=== PATIENT | male | born 1970 | race Caucasian/White ===

== ENCOUNTER 2020-03-04 00:35 | Emergency (ER) | payer SELFPAY ==
[~2020-03-04] VITALS: Ht 180.3 cm; Wt 70.3 kg
[2020-03-04] MEDS ORDERED: NS 1000ML 1,000 ML IV STA (01:09)
[2020-03-04] MEDS ORDERED: NS 1000ML 1,000 ML ONE (01:18)
--- NOTE | 2020-03-04 01:19 | ER.PDOC ---
General Chief Complaint: Requesting Medical Care Stated Complaint: ABDOMINAL PAIN AND VOMITING Time seen by MD: 01:15 Source: patient Exam Limitations: no limitations History of Present Illness Initial Comments Upper abdominal pain and vomiting blood since last night. Patient is a chronic alcoholic. Severity/Quality: moderate Radiation: no radiation Associated Symptoms: nausea/vomiting Exacerbated by: nothing Relieved By: nothing Allergies: Coded Allergies: Penicillins (Verified Allergy, Unknown, Rash, 03/04/20) Home Meds No Active Prescriptions or Reported Meds Vital Signs First Vital Signs Date Time Temp Pulse Resp B/P (MAP) Pulse Ox O2 Delivery O2 Flow Rate FiO2 03/04/20 01:56 98.5 105 16 130/78 (95) 95 Room Air Last Vital Signs Date Time Temp Pulse Resp B/P (MAP) Pulse Ox O2 Delivery O2 Flow Rate FiO2 03/04/20 03:33 98.2 109 16 127/74 (91) 92 Room Air Constitutional: no symptoms reported Respiratory: no symptoms reported Cardiovascular: no symptoms reported Gastrointestinal: see HPI Genitourinary: no symptoms reported All Other Systems: Reviewed and Negative Physical Exam General Appearance: No Apparent Distress, WD/WN Neck: Non-Tender, Full Range of Motion, Supple, Normal Inspection Respiratory: chest non-tender, lungs clear, normal breath sounds, no respiratory distress, no accessory muscle use Cardiovascular: Normal Peripheral Pulses, Regular Rate, Rhythm, No Edema, No Gallop, No JVD, No Murmur Gastrointestinal: Normal Bowel Sounds, No Organomegaly, No Pulsatile Mass, Tenderness (upper abdomen) Back: Normal Inspection, No CVA Tenderness, No Vertebral Tenderness Extremities: Normal Range of Motion, Non-Tender, Normal Inspection, No Pedal Edema, No Calf Tenderness, Normal Capillary Refill, Pelvis Stable Neurologic/Psychiatric: clerk guide II-XII NML as Tested, No Motor/Sensory Deficits, Alert, Normal Mood/Affect, Oriented x 3 Skin: Normal Color, Warm/Dry Results/Orders Results/Orders Orders - SCOTT SALAZAR MD Cbc With Auto Diff (03/04/20 01:09) Comprehensive Metabolic Panel (03/04/20 01:09) Lipase (03/04/20 01:09) Helicobacter Pylori (03/04/20 01:09) PT (03/04/20 01:09) Ct Abd/Pel With Iv Contrast (03/04/20 01:09) Partial Thromboplastin Time. (03/04/20 01:09) Urinalysis (03/04/20 01:09) Ekg-Routine (03/04/20 01:09) 0.9 % Sodium Chloride (Ns 1000ml) (03/04/20 01:09) Alcohol(Ml) (03/04/20 01:09) 0.9 % Sodium Chloride (Ns 1000ml) (03/04/20 01:18) Lactic Acid(Ml) (03/04/20 01:28) Blood Culture (03/04/20 01:28) Pantoprazole Sodium (Protonix Iv) (03/04/20 01:32) Pantoprazole Sodium (Protonix Iv) (03/04/20 01:32) Octreotide Acetate (Sandostatin) (03/04/20 01:32) Octreotide Acetate (Sandostatin) (03/04/20 01:32) Octreotide Acetate (Sandostatin) (03/04/20 02:17) 0.9 % Sodium Chloride (Ns 100ml) (03/04/20 02:18) 0.9 % Sodium Chloride (Ns 500ml) (03/04/20 02:18) Octreotide Acetate (Sandostatin) (03/04/20 02:19) Pantoprazole Sodium (Protonix Iv) (03/04/20 02:20) Vital Signs Date Time Temp Pulse Resp B/P (MAP) Pulse Ox O2 Delivery O2 Flow Rate FiO2 03/04/20 03:33 98.2 109 16 127/74 (91) 92 Room Air 03/04/20 01:56 98.5 105 16 03/04/20 01:56 98.5 105 16 95 03/04/20 01:56 98.5 105 16 130/78 (95) 95 Room Air Administered Medications Medications (Trade) Dose Ordered Sig/Chu Route PRN Reason Start Time Stop Time Status Last Admin Dose Admin Octreotide Acetate 1250 mcg/ Sodium Chloride 252.5 ml @ 10 mls/hr STAT STAT IV 03/04/20 01:32 03/05/20 02:46 03/04/20 02:51 10 MLS/HR Octreotide Acetate (Sandostatin) 50 mcg STAT STAT IV 03/04/20 01:32 03/04/20 01:35 DC 03/04/20 02:45 50 MCG Pantoprazole Sodium (Protonix Iv) 80 mg STAT STAT IV 03/04/20 01:32 03/04/20 01:36 DC 03/04/20 02:40 80 MG Pantoprazole Sodium 80 mg/ Sodium Chloride 100 ml @ 10 mls/hr STAT STAT IV 03/04/20 01:32 03/04/20 11:31 03/04/20 02:48 10 MLS/HR Sodium Chloride 1,000 ml @ 1,200 mls/hr Q50M STAT IV 03/04/20 01:09 03/04/20 01:58 DC 03/04/20 01:23 1,200 MLS/HR Laboratory Tests Test 03/04/20 00:50 03/04/20 00:56 03/04/20 01:27 Lactic Acid Level 1.3 mmol/L (0.5-1.9) White Blood Count 19.6 10^3/uL (4.5-11.0) H Red Blood Count 3.61 10^6/uL (4.50-5.90) L Hemoglobin 14.0 g/dL (13.9-16.3) Hematocrit 40.1 % (37.0-53.0) Mean Corpuscular Volume 111.1 fL (78-100) H Mean Corpuscular Hemoglobin 38.8 pg (26-34) H Mean Corpuscular Hemoglobin Concent 34.9 g/dL (33-36.5) Red Cell Distribution Width 12.5 % (11.5-14.5) Platelet Count 313 10^3/uL (150-400) Mean Platelet Volume 10.0 fL (7.8-11.0) Neutrophils (%) (Auto) 59.6 % (41.0-85.0) Lymphocytes (%) (Auto) 29.7 % (24.0-44.0) Monocytes (%) (Auto) 7.5 % (5.0-12.0) Neutrophils # (Auto) 11.7 10^3/uL (1.8-7.7) H Lymphocytes # (Auto) 5.80 10^3/uL1 (1.0-4.8) H Monocytes # (Auto) 1.5 10^3/uL (0.3-0.8) H Absolute Immature Granulocyte (auto 0.15 10^3 u/L (0-2) Absolute Eosinophils (auto) 0.4 10^3/uL (0.0-0.2) H Immature Granulocytes % 0.80 % (0.00-0.50) H Eosinophils % 2.0 % (0.0-5.0) Basophils % 0.4 % (0.0-0.2) H Basophils # 0.1 10^3/uL (0.0-0.1) Prothrombin Time 10.3 SEC (9.3-11.3) Prothrombin Time INR (Non-Therap) 1.0 Activated Partial Thromboplast Time 21.9 SEC (24.67-30.72) Sodium Level 138 mmol/L (132-145) Potassium Level 3.3 mmol/L (3.6-5.2) L Chloride Level 98.0 mmol/L (96-109) Carbon Dioxide Level 31.0 mmol/L (20.0-32) Anion Gap 12.3 Blood Urea Nitrogen 11 mg/dL (7-18) Creatinine 0.85 mg/dL (0.59-1.40) Estimated GFR () 116.9 (>/=60) Est GFR (CKD-EPI)(Non-Afr Citizen Of [place]) 96.6 (>/=60) BUN/Creatinine Ratio 12.0 Glucose Level 122 mg/dL (70-110) H Calcium Level 8.9 mg/dL (8.4-10.5) Total Bilirubin 1.0 mg/dL (0.2-1.0) Aspartate Amino Transferase (AST) 28 U/L (0-35) Alanine Aminotransferase (ALT) 29 U/L (12-78) Alkaline Phosphatase 138 U/L (50-136) H Total Protein 6.2 g/dL (6.4-8.2) L Albumin 2.3 g/dL (3.4-5.0) L Globulin 3.9 Lipase 168 U/L (114-286) Serum Alcohol < 3 mg/dL (0-50) Helicobacter pylori Screen POSITIVE (NEGATIVE) POC Stool Occult Blood POSITIVE (NEGATIVE) EKG/XRAY/CT/US CT Comments: No active disease on CT abdomen/pelvis Departure Time of Disposition: 04:08 Disposition: 02 XFER SHT-TRM HOSP Impression: Primary Impression: GI bleed Condition: Stable Referrals: PCP,UNKNOWN (PCP) PRIMARY CARE PROVIDER Scripts No Active Prescriptions or Reported Meds Comments Transfer to [facility] ED for Dr. Suazo Duration or Time Spent with Pa: 60 min Critical Care Note Total Time (mins): 60 Problem Qualifiers Primary Impression: GI bleed GI bleed type/associated pathology: unspecified gastrointestinal hemorrhage type Qualified Codes: K92.2 - Gastrointestinal hemorrhage, unspecified SCOTT SALAZAR MD Mar 04, 2020 01:19
[2020-03-04 01:20] LABS: BASOPHIL # 0.1 10^3/uL (0.0-0.1); BASOPHIL % 0.4 % (0.0-0.2); EOSINOPHIL # 0.4 10^3/uL (0.0-0.2); LYMPHOCYTES % 29.7 % (24.0-44.0); MEAN CORP HGB 38.8 pg (26-34); MONOCYTES # 1.5 10^3/uL (0.3-0.8); MONOCYTES % 7.5 % (5.0-12.0); NEUTROPHIL # 11.7 10^3/uL (1.8-7.7); NEUTROPHILS % 59.6 % (41.0-85.0); PLATELET COUNT 313 10^3/uL (150-400); RED CELL DISTRIBUTION WIDTH 12.5 % (11.5-14.5)
--- NOTE | 2020-03-04 01:22 | PCM.EKG ---
[facility] Test Date: 2020-03-04 Test Time: 01:08:22 Pat Name: MAHESH HORNE Department: Room: Gender: M An/Sqq [id number] [employer] System Journeyman: [place] : 1970 Requested By: SCOTT SALAZAR Order Number: [id number] Reading MD: Scott SALAZAR Measurements Intervals Whick Rate: 101 P: 72 LA: 123 QRS: 98 QRSD: 94 T: 61 QT: 354 QTc: 459 Interpretive Statements Sinus tachycardia Borderline right axis deviation Minimal ST depression, diffuse leads No previous ECG available for comparison Electronically Signed On 03-05-2020 11:07:53 CDT by Scott SALAZAR Please click the below link to view image of tracing.
[2020-03-04] MEDS ORDERED: SANDOSTATIN IV STA ×2 (01:32)
[2020-03-04] MEDS ORDERED: PROTONIX IV IV STA (01:32)
[2020-03-04] MEDS ORDERED: PROTONIX IV 80 MG in NS 100ML 100 ML IV STA (01:32)
[2020-03-04] MEDS ORDERED: NS IV STA (01:32)
[2020-03-04 01:37] LABS: CALCIUM 8.9 mg/dL (8.4-10.5)
[2020-03-04 01:56] VITALS: BP 130/78
--- NOTE | 2020-03-04 02:15 | NUR ---
Having bloody diahrrea. Physician notified.
[2020-03-04] MEDS ORDERED: SANDOSTATIN ONE ×2 (02:17→02:19)
[2020-03-04] MEDS ORDERED: NS 100ML 100 ML IV ONE (02:18)
[2020-03-04] MEDS ORDERED: NS 500ML 500 ML IV ONE (02:18)
[2020-03-04] MEDS ORDERED: PROTONIX IV IV ONE (02:20)
[2020-03-04 03:33] VITALS: BP 127/74
--- NOTE | 2020-03-04 03:44 | DIREP ---
PROCEDURE:CT ABDOMEN/PELVIS W/ CONTRAST COMPARISON:None. INDICATIONS:Upper abdominal pain, HIGH WBC, HEMOPTYSIS, DIARRHEA TECHNIQUE:Axial images were created through the abdomen and pelvis with non-ionic intravenous contrast material. No oral contrast was administered. Sagittal and coronal reconstructions were performed from source images. FINDINGS: LUNG BASES:Normal. No visible pulmonary or pleural disease. LIVER:Diffuse decreased attenuation. Otherwise normal. BILIARY:Normal. No visible dilatation or calcification. PANCREAS:Normal. No lesion, fluid collection, ductal dilatation, or atrophy. SPLEEN:Normal. No enlargement or focal lesion. ADRENALS:Normal. No mass or enlargement. URINARY TRACT:Normal. No focal lesions or hydronephrosis. AORTA/VASCULAR:Normal. No aneurysm. RETROPERITONEUM:Normal. No mass or adenopathy. BOWEL/MESENTERY:The appendix is not visualized. There is no intestinal obstruction, free fluid, free air or mesenteric inflammatory changes. ABDOMINAL WALL:Normal. No mass or hernia. PELVIC ORGANS:Normal. No visible mass. Pelvic organs appropriate for patient age. BONES:Normal for age. No bony lesion or acute fracture. OTHER:Negative. CONCLUSION: 1. No acute abdomen/pelvis abnormalities. 2. Fatty liver. Dictated by: Dalton Oreilly M.D. on 03/04/2020 at 03:37 AM
[2020-03-04 04:11] VITALS: BP 119/73
--- NOTE | 2020-03-04 04:32 | NUR ---
Report called to ANA Joseph at [facility] ED.
== END 2020-03-04 04:25 | disposition short-term general hospital (02) ==
LOC: ER 00:35
DX: K92.2 Gastrointestinal hemorrhage, unspecified (principal); R11.2 Nausea with vomiting, unspecified; Z88.0 Allergy status to penicillin
CPT/HCPCS: 36415; 74177; 80053; 80320; 82272; 83605; 83690; 85025; 85610; 85730; 86677; 87040 ×2; 93005; 96361; 96365; 96366; 96376; 99291; C9113 ×2; J7030; J7040; J7050 ×3; Q9965